=== PATIENT | male | born 1975 | race Caucasian/White ===

== ENCOUNTER 2019-08-30 05:10 | Emergency (ER) | payer OTHER ==
[~2019-08-30] VITALS: Ht 175.3 cm; Wt 72.6 kg
[~2019-08-30 05:10] MED LIST: ATEN25; Augmentin 875-1 EACH PO; METHI10; Ultram50 MG PO
[2019-08-30 05:44] LABS: Source, Urine Voided
[2019-08-30 05:47] LABS: Appearance, Urine Clear (Clear); Bilirubin, Urine Neg (Neg); Blood, Urine Neg (Neg); Color, Urine Yellow (P-Yellow); Glucose Qualitative, Urine Neg (Neg); Ketones, Urine Neg (Neg); Leukocyte Esterase, Urine Neg (Neg); Nitrite, Urine Neg (Neg); Protein, Urine Neg (Neg); Specific Gravity, Urine 1.025 (1.003-1.022); Urobilinogen, Urine NORM (Normal)
[2019-08-30 06:20] LABS: Chloride (POC) 106 mmol/L (98-108); Glucose (ISTAT POC) 99 mg/dL (70-99); Hemoglobin (POC) 15.6 g/dL (13.5-17.5); Potassium (POC) 4.2 mmol/L (3.5-5.5); Sodium (POC) 140 mmol/L (135-148); Total CO2 (POC) 24 mmol/L (21-32)
[2019-08-30] MEDS ORDERED: Ultram50 MG PO (07:22)
[2019-08-30] MEDS ORDERED: Flomax0.4 MG PO (07:22)
== END 2019-08-30 07:38 | disposition home or self-care (01) ==
LOC: ER 05:10
PROVIDERS: Emergency Medicine
DX: N20.0 Calculus of kidney (principal); F17.220 Nicotine dependence, chewing tobacco, uncomplicated
CPT/HCPCS: 74176; 80047; 81003; 85014; 99284-25